=== PATIENT | male | born 1940 | race Caucasian/White ===

== ENCOUNTER 2016-05-31 23:42 | Observation (INO) | payer OTHER ==
[~2016-05-31] VITALS: Ht 177.8 cm; Wt 101.5 kg
[~2016-05-31 23:42] MED LIST: ASPEC81 PO; CICL160A INH; CYAN100T6 PO; LEVO25TA PO; MTR/600 PO; PRAV40TA PO; RIVA1TAB4 PO
[2016-06-01] VITALS (11 sets, daily range): BP systolic 119–150; BP diastolic 70–95; PULSE 61–77; TEMP 36.5–37.3; O2SAT 94–99; Ht 177.8 cm; Wt 101.5 kg
[2016-06-01] MEDS ORDERED: HYG/25 PO (00:10)
[2016-06-01] MEDS ORDERED: ASPI1TAB48 PO (00:12)
[2016-06-01] MEDS ORDERED: LISI20TA3 PO (00:13)
[2016-06-01] MEDS ORDERED: RIVA1TAB4 PO (00:14)
[2016-06-01 00:27] LABS: BASO % 0.3 %; BASO ABS # 0.03 K/uL (0-0.2); COMPLETE YES; EOS % 1.6 %; HEMATOCRIT 41.2 % (42-52); IG% 0.5 %; LYMPH ABS # 2.42 K/uL (1.2-3.4); MEAN CELL VOLUME 85.1 fL (80-100); MEAN CORPUSCULAR HEMOGLOBIN 30.4 pg (25-34); MEAN CORPUSCULAR HGB CONC 35.7 g/dl (32-36); MEAN PLATELET VOLUME 10.7 fL (7.4-10.4); MONO % 10.1 %; NEUT % 63.5 %; PLATELET COUNT 147 K/uL (130-400); RED BLOOD COUNT 4.84 M/uL (4.7-6.1); WHITE BLOOD COUNT 10.07 K/uL (4.8-10.8)
[2016-06-01 00:29] LABS: PARTIAL THROMBOPLASTIN RATIO 0.9; PROTHROMBIN TIME (PATIENT) 11.1 SECONDS (9.0-12.0)
[2016-06-01 00:35] LABS: ALT/SGPT 22 U/L (12-78); AST/SGOT 17 U/L (15-37); BLOOD UREA NITROGEN 29 mg/dl (7-18); BUN/CREATININE RATIO 22.4 (10-20); CALCIUM 9.6 mg/dl (8.5-10.1); CARBON DIOXIDE 25 mmol/L (21-32); CHLORIDE 107 mmol/L (98-107); GLUCOSE 101 mg/dl (70-99); MAGNESIUM 2.2 mg/dl (1.8-2.4); SODIUM 143 mmol/L (136-145)
[2016-06-01 00:38] LABS: ALKALINE PHOSPHATASE 103 U/L (45-117)
[2016-06-01 01:15] LABS: BENZODIAZEPINE, URINE NEG (NEG); COCAINE,URINE NEG (NEG); PHENCYCLIDINE, URINE NEG (NEG)
--- NOTE | 2016-06-01 01:35 | EMERGENCY ROOM VISIT NOTE ---
History Report prepared by Kay: Alina Garzon Under the Supervision of: Dr. Shade Ponce M.D. First contact with patient: 23:55 Chief Complaint: SYNCOPE Stated Complaint: UNRESPONSIVE EPISODE Nursing Triage Summary: Patient presents ALS from [facility] for evaluation of ? syncopal episodes. EMS was called for an approximate 30 minute period where patient was in a fixed gaze. This occured again for EMS in route; lasting approximately 3-4 minutes. + blink reflex noted for medic during this time. Patient a/o upon arrival to ED. Denies any complaints. History of Present Illness The patient is a 75 year old male who presents to the Emergency Room with complaints of a sudden episode of unresponsiveness that occurred prior to arrival. Per nursing staff, the patient has had several episodes where he stares off into space and does not respond to anything. They deny any report of seizure like activity. Per the shelter guards, the patient was confused after the event, and had no recollection of what had happened. He had a similar episode with EMS. The patient does not remember any these episodes. The patient denies any recent illness, headache, fever, chest pain, shortness of breath, palpitations, or other complaints. Source of History: patient, nursing staff, other (shelter guards) Onset: prior to arrival Position: other (global) Quality: other (unresponsiveness episode) Timing: other (sudden) Associated Symptoms: No SOB, No chest pain, No fevers Review of Systems See HPI for pertinent positives & negatives. A total of 10 systems reviewed and were otherwise negative. Past Medical & Surgical Medical Problems: (1) Atrial fibrillation (2) Embolic stroke of left basal ganglia (3) HTN (hypertension) (4) Hypothyroidism (5) Pneumonia (6) Seizure-like activity (7) Seizures (8) Stenosis of right vertebral artery Surgical Problems: (1) Aortic valve replaced Family History Patient reports no known family medical history. Social History Smoking Status: Never Smoker Drug Use: none Housing Status: other Occupation Status: unemployed Current/Historical Medications Scheduled Aspirin (Aspirin Low Dose), 81 MG PO DAILY Chlorthalidone (Hygroton), 25 MG PO BID Ciclesonide (Alvesco), 1 PUFF INH BID Cyanocobalamin (Vitamin B12 100 Mcg), 100 MCG PO DAILY Levothyroxine Sodium (Synthroid), 50 MCG PO DAILY Lisinopril (Prinivil), 20 MG PO BID Pravastatin Sodium (Pravachol), 60 MG PO HS Rivaroxaban (Xarelto), 20 MG PO DAILY Scheduled PRN Ibuprofen (Ibuprofen), 600 MG PO TID PRN for Pain Allergies Coded Allergies: No Known Allergies (Unverified , 06/01/16) Physical Exam Vital Signs Date Time Temp Pulse Resp B/P Pulse Ox O2 Delivery O2 Flow Rate FiO2 06/01/16 01:15 76 20 122/83 98 Room Air 06/01/16 00:08 91 22 165/98 98 Room Air 06/01/16 00:02 97 Room Air 05/31/16 23:58 86 05/31/16 23:48 36.7 88 20 186/113 98 Room Air Physical Exam Constitutional: Vital signs reviewed. Eyes: Pupils are equal round reactive to light. Conjunctiva are noninjected. ENT: Pharynx is clear without erythema or exudate. Mucous membranes are moist. Neck supple without meningeal signs. Respiratory: Clear to auscultation bilaterally. Breath sounds are equal bilaterally. Cardiovascular: Regular rate and rhythm. No rubs or gallops. GI: Soft, nondistended and nontender. Bowel sounds are present. Musculoskeletal: No peripheral edema. No lower extremity tenderness. Integumentary: No cyanosis. Neurological: The patient is awake and alert. Cranial nerves II-XII are intact. Motor is 5 out of 5 all extremities. Sensation is intact to light touch all extremities. Normal speech. No pronator drift. Psychiatric: Normal affect. Medical Decision & Procedures ER Provider Diagnostic Interpretation: 1 view chest x-ray interpreted by me: increase interstitial markings in the left lung obscuring heart border, similar to prior chest x-ray from June [address] results as stated below per my review and radiologist interpretation. CT Head: Comparison: CT dated 06/08/15 No acute intracranial hemorrhage or other acute intracranial abnormality. Stable arachnoid cyst in the left middle cranial fossa. Stable atrophy and chronic small vessel ischemic disease. Stable chronic left basal ganglia lacunar infarct. Radiologist: Enedina King MD Study ready at 0036 and initial results transmitted at 0109 Laboratory Results 06/01/16 00:07 Red Blood Count 4.84, Mean Corpuscular Volume 85.1, Mean Corpuscular Hemoglobin 30.4, Mean Corpuscular Hemoglobin Concent 35.7, Mean Platelet Volume 10.7, Neutrophils (%) (Auto) 63.5, Lymphocytes (%) (Auto) 24.0, Monocytes (%) (Auto) 10.1, Eosinophils (%) (Auto) 1.6, Basophils (%) (Auto) 0.3, Neutrophils # (Auto ) 6.39, Lymphocytes # (Auto) 2.42, Monocytes # (Auto) 1.02, Eosinophils # (Auto ) 0.16, Basophils # (Auto) 0.03 06/01/16 00:07 Test 06/01/16 00:07 06/01/16 00:10 06/01/16 00:40 White Blood Count 10.07 K/uL (4.8-10.8) Red Blood Count 4.84 M/uL (4.7-6.1) Hemoglobin 14.7 g/dL (14.0-18.0) Hematocrit 41.2 % (42-52) Mean Corpuscular Volume 85.1 fL (80-100) Mean Corpuscular Hemoglobin 30.4 pg (25-34) Mean Corpuscular Hemoglobin Concent 35.7 g/dl (32-36) Platelet Count 147 K/uL (130-400) Mean Platelet Volume 10.7 fL (7.4-10.4) Neutrophils (%) (Auto) 63.5 % Lymphocytes (%) (Auto) 24.0 % Monocytes (%) (Auto) 10.1 % Eosinophils (%) (Auto) 1.6 % Basophils (%) (Auto) 0.3 % Neutrophils # (Auto) 6.39 K/uL (1.4-6.5) Lymphocytes # (Auto) 2.42 K/uL (1.2-3.4) Monocytes # (Auto) 1.02 K/uL (0.11-0.59) Eosinophils # (Auto) 0.16 K/uL (0-0.5) Basophils # (Auto) 0.03 K/uL (0-0.2) RDW Standard Deviation 40.5 fL (36.4-46.3) RDW Coefficient of Variation 13.1 % (11.5-14.5) Immature Granulocyte % (Auto) 0.5 % Immature Granulocyte # (Auto) 0.05 K/uL (0.00-0.02) Prothrombin Time 11.1 SECONDS (9.0-12.0) Prothromb Time International Ratio 1.0 (0.9-1.1) Activated Partial Thromboplast Time 23.9 SECONDS (21.0-31.0) Partial Thromboplastin Ratio 0.9 Anion Gap 11.0 mmol/L (3-11) Estimated GFR () 62.3 Estimated GFR (Non- 53.8 BUN/Creatinine Ratio 22.4 (10-20) Calcium Level 9.6 mg/dl (8.5-10.1) Magnesium Level 2.2 mg/dl (1.8-2.4) Total Bilirubin 0.3 mg/dl (0.2-1) Direct Bilirubin < 0.1 mg/dl (0-0.2) Aspartate Amino Transf (AST/SGOT) 17 U/L (15-37) Alanine Aminotransferase (ALT/SGPT) 22 U/L (12-78) Alkaline Phosphatase 103 U/L (45-117) Total Protein 7.6 gm/dl (6.4-8.2) Albumin 4.0 gm/dl (3.4-5.0) Free Thyroxine 0.95 ng/dl (0.80-1.60) Bedside Troponin I 0.000 ng/ml (0-0.045) Urine Opiates Screen NEG (NEG) Urine Methadone, Qualitative NEG (NEG) Urine Barbiturates NEG (NEG) Urine Phencyclidine (PCP) Level NEG (NEG) Ur Amphetamine/Methamphetamine NEG (NEG) MDMA (Ecstasy) Screen NEG (NEG) Urine Benzodiazepines Screen NEG (NEG) Urine Cocaine Metabolite NEG (NEG) Urine Marijuana (THC) NEG (NEG) Laboratory results as reviewed by me. ECG Indication: altered mental status Rate (beats per minute): 71 Rhythm: atrial fibrillation Findings: nonspecific-ST abn, no ectopy ED Course 2358: The patient was evaluated in room A12B. A complete history and physical exam was performed. 0113: I reevaluated the patient and he has no complaints. I discussed the exam findings with him and I discussed the treatment plan. He verbalized complete understanding and agreement. He is ready to go home. []: I discussed the patient's case with MATT Farris. He is going to evaluate the patient for further treatment. Medical Decision This is a 75-year-old male who presents with unresponsive episodes. Differential diagnosis includes seizure, dysrhythmia, intracranial hemorrhage, intracranial mass, metabolic derangement. I did perform a limited focused review of portions of the patient's old chart on the electronic medical record. The patient was here in may of last year because he had two syncopal episodes where he was unresponsive for [address] scan showed subacute left basal ganglia CVA. EEG showed no epileptic wave forms. He was noted to have bradycardia. I did evaluate the patient as noted above. The patient states that he feels unwell but has no specific complaints. He had 2 unresponsive episodes. IV access was established. The patient was placed on a continuous cardiac cath lab technologist. I did order and personally review the patient's 12-lead EKG and chest x-ray as described above. I did order and review the patient's blood work as noted in the electronic medical record. Troponin is 0. Electrolytes are unremarkable. Urine drug screen is negative. I did order a CT of the head. I did review the images myself as well as the radiology report as described above. There is no evidence of stroke or acute process. I did discuss the test results with the patient. He is currently not complaining of any symptoms. I did recommend hospitalization for further evaluation of his symptoms. I did discuss the case with the hospitalist and bottle caser. Consults Time Called: 0112 Consulting Physician: MATT Farris Returned Call: 01:34 I discussed the patient's case with MATT Farris. He is going to evaluate the patient for further treatment. Impression Primary Impression: Unresponsive episode Scribe Attestation The scribe's documentation has been prepared under my direct and personally reviewed by me in its entirety. I confirm that the note above accurately reflects all work, treatment, procedures, and medical decision making performed by me. Departure Information Dispostion Being Evaluated By Hospitalist Referrals Bharat WEISS (PCP)
[2016-06-01] MEDS ORDERED: PHARMACIST DISCHARGE MED REC CONSULT PRN (01:45)
[2016-06-01] MEDS ORDERED: SODIUM CHLORIDE 0.9% 1000ML 1,000 ML IV SCH (01:45)
[2016-06-01] MEDS ORDERED: ALUMINUM/MAGNESIUM/SIMETH (MAALOX MAX) 30 ML UDC PO PRN (01:45)
[2016-06-01] MEDS ORDERED: MAGNESIUM HYDROXIDE SUSP 30 ML UDC PO PRN (01:45)
[2016-06-01] MEDS ORDERED: ONDANSETRON INJ 2 MG/ML 2 ML VIAL IV PRN (01:45)
[2016-06-01] MEDS ORDERED: ACETAMINOPHEN 325 MG TAB PO PRN (01:45)
[2016-06-01] MEDS ORDERED: POLYETHYLENE (MIRALAX) 17 GM PACK PO PRN ×2 (01:45→17:00)
--- NOTE | 2016-06-01 01:57 | History and Physical ---
History & Physical Date & Time of Service: Jun 01, 2016 at 01:45 Chief Complaint: Unresponsive Episode Primary Care Physician: Bharat WEISS History of Present Illness Source: patient 75 y/o M w/Hx CVA, AF, vertebrobasilar insufficiency, multiple syncopal episodes , bradycardia. Presents from a local correction facility due to unresponsive episodes lasting several minutes. Initial episodes - approximately 4 - occurred in nursing home. Additional episode was witnessed by EMS on route to the hospital. There is no reported accompanying LOC, seizure-like activity or defined post-ictal state. The pt denies recollection of theses episodes or preceding symptoms such as CP, palpitations, SOB, WARD or visual disturbances. He was admitted due to similar complaint 06/15. An MRI at the time revealed a L basilar lacunar infarct. It is unclear if this was related to his symptoms. An EEG was negative. The pt is anticoagulated with Xarelto and takes daily ASA as well. He is asymptomatic at the time of admission. Past Medical/Surgical History 1) L basilar lacunar CVA 2) Multiple syncopal episodes 3) HTN 4) Non-occlusive CAD - pt has had several catheterizations per previous records 5) Chronic AF 6) Bioprosthetic aortic valve 2013 7) PFO closure 2013 8) Recurrent syncopal episodes - long-term event monitor did not yield a diagnosis 9) Bradycardia into 30s reported during previous hospital visits 10) RENATO 11) HPL Family History Patient reports no known family medical history. Social History Incarcerated - does not drink or smoke Smoking Status: Never Smoker Drug Use: none Housing status: other Occupational Status: unemployed Allergies Coded Allergies: No Known Allergies (Unverified , 06/01/16) Home Medications Scheduled Aspirin (Aspirin Low Dose), 81 MG PO DAILY Chlorthalidone (Hygroton), 25 MG PO BID Ciclesonide (Alvesco), 1 PUFF INH BID Cyanocobalamin (Vitamin B12 100 Mcg), 100 MCG PO DAILY Levothyroxine Sodium (Synthroid), 50 MCG PO DAILY Lisinopril (Prinivil), 20 MG PO BID Pravastatin Sodium (Pravachol), 60 MG PO HS Rivaroxaban (Xarelto), 20 MG PO DAILY Scheduled PRN Ibuprofen (Ibuprofen), 600 MG PO TID PRN for Pain Review of Systems Constitutional: No chills, No fever, No sweats Eyes: No eye pain, No worsening of vision ENT: No hearing loss, No nasal symptoms, No unusual epistaxis Respiratory: No cough, No sputum, No wheezing Cardiovascular: No PND, No chest pain, No orthopnea Abdomen: No nausea, No pain, No vomiting Musculoskeletal: No joint pain, No muscle pain Genitourinary - Male: No dysuria, No hematuria, No urinary frequency Neurologic: + memory loss, + problem reported (Breif unresponsive episode x 2) , No paralysis Psychiatric: No depression symptoms Endocrine: No fatigue Hematologic / Lymphatic: No abnormal bleeding/bruising Integumentary: No rash Allergic / Immunologic: No environmental allergies Physical Exam Vital Signs Date Time Temp Pulse Resp B/P Pulse Ox O2 Delivery O2 Flow Rate FiO2 06/01/16 01:15 76 20 122/83 98 Room Air 06/01/16 00:08 91 22 165/98 98 Room Air 06/01/16 00:02 97 Room Air 05/31/16 23:58 86 05/31/16 23:48 36.7 88 20 186/113 98 Room Air General Appearance: WD/WN, no apparent distress Head: normocephalic, atraumatic Eyes: normal inspection, PERRL, EOMI ENT: normal ENT inspection, pharynx normal Neck: supple, no adenopathy, thyroid normal, no JVD Respiratory/Chest: chest non-tender, lungs clear, normal breath sounds Cardiovascular: + systolic murmur, + irregularly irregular Abdomen/GI: normal bowel sounds, non tender, soft Back: normal inspection, no CVA tenderness, no muscle spasm, normal range of motion Extremities/Musculoskelatal: normal inspection, no calf tenderness, normal capillary refill, no pedal edema, normal range of motion Neurologic/Psych: abrasive grinder II-XII nml as tested, no motor/sensory deficits, alert, normal mood/affect, normal reflexes, oriented x 3 Skin: normal color, warm/dry, no rash Diagnostics Laboratory Results Results Past 24 Hours Test 06/01/16 00:07 06/01/16 00:10 06/01/16 00:40 Range/Units White Blood Count 10.07 4.8-10.8 K/uL Red Blood Count 4.84 4.7-6.1 M/uL Hemoglobin 14.7 14.0-18.0 g/dL Hematocrit 41.2 42-52 % Mean Corpuscular Volume 85.1 80-100 fL Mean Corpuscular Hemoglobin 30.4 25-34 pg Mean Corpuscular Hemoglobin Concent 35.7 32-36 g/dl Platelet Count 147 130-400 K/uL Mean Platelet Volume 10.7 7.4-10.4 fL Neutrophils (%) (Auto) 63.5 % Lymphocytes (%) (Auto) 24.0 % Monocytes (%) (Auto) 10.1 % Eosinophils (%) (Auto) 1.6 % Basophils (%) (Auto) 0.3 % Neutrophils # (Auto) 6.39 1.4-6.5 K/uL Lymphocytes # (Auto) 2.42 1.2-3.4 K/uL Monocytes # (Auto) 1.02 0.11-0.59 K/uL Eosinophils # (Auto) 0.16 0-0.5 K/uL Basophils # (Auto) 0.03 0-0.2 K/uL RDW Standard Deviation 40.5 36.4-46.3 fL RDW Coefficient of Variation 13.1 11.5-14.5 % Immature Granulocyte % (Auto) 0.5 % Immature Granulocyte # (Auto) 0.05 0.00-0.02 K/uL Prothrombin Time 11.1 9.0-12.0 SECONDS Prothromb Time International Ratio 1.0 0.9-1.1 Activated Partial Thromboplast Time 23.9 21.0-31.0 SECONDS Partial Thromboplastin Ratio 0.9 Sodium Level 143 136-145 mmol/L Potassium Level 4.0 3.5-5.1 mmol/L Chloride Level 107 98-107 mmol/L Carbon Dioxide Level 25 21-32 mmol/L Anion Gap 11.0 3-11 mmol/L Blood Urea Nitrogen 29 7-18 mg/dl Creatinine 1.30 0.60-1.40 mg/dl Estimated GFR () 62.3 Estimated GFR (Non- 53.8 BUN/Creatinine Ratio 22.4 10-20 Random Glucose 101 70-99 mg/dl Calcium Level 9.6 8.5-10.1 mg/dl Magnesium Level 2.2 1.8-2.4 mg/dl Total Bilirubin 0.3 0.2-1 mg/dl Direct Bilirubin < 0.1 0-0.2 mg/dl Aspartate Amino Transf (AST/SGOT) 17 15-37 U/L Alanine Aminotransferase (ALT/SGPT) 22 12-78 U/L Alkaline Phosphatase 103 45-117 U/L Total Protein 7.6 6.4-8.2 gm/dl Albumin 4.0 3.4-5.0 gm/dl Free Thyroxine 0.95 0.80-1.60 ng/dl Bedside Troponin I 0.000 0-0.045 ng/ml Urine Opiates Screen NEG NEG Urine Methadone, Qualitative NEG NEG Urine Barbiturates NEG NEG Urine Phencyclidine (PCP) Level NEG NEG Ur Amphetamine/Methamphetamine NEG NEG MDMA (Ecstasy) Screen NEG NEG Urine Benzodiazepines Screen NEG NEG Urine Cocaine Metabolite NEG NEG Urine Marijuana (THC) NEG NEG Diagnostic Radiology CT head - no acute findings EKG AF - IVCD - no acute change Impression Assessment and Plan 75 y/o M w/Hx CVA, AF, vertebrobasilar insufficiency, multiple syncopal episodes , bradycardia. Presents from a local correction facility due to unresponsive episodes lasting several minutes. Initial episodes - approximately 4 - occurred in nursing home. Additional episode was witnessed by EMS on route to the hospital. There is no reported accompanying LOC, seizure-like activity or defined post-ictal state. The pt denies recollection of theses episodes or preceding symptoms such as CP, palpitations, SOB, WARD or visual disturbances. He was admitted due to similar complaint 06/15. An MRI at the time revealed a L basilar lacunar infarct. It is unclear if this was related to his symptoms. An EEG was negative. The pt is anticoagulated with Xarelto and takes daily ASA as well. He is asymptomatic at the time of admission. 1) Unresponsive episodes - R/O TIA vs Seizures - pt is anticoagulated with Xarelto and takes ASA daily - we have increased his Statin dose. He is scheduled for an additional MRI AM and a neurology consult is requested. If these episodes continue to recur and are deemed unrelated to vascular insult, it may be prudent to transfer this pt to an epilepsy center for continuous EEG/ video monitoring. 2) AF - rate controlled - cont B mojgan, Xarelto - consider echo if there are new insults seen on MRI. 3) HTN - BP meds held pending MRI and neuro eval 4) Previous bradycardic episodes - none currently detected - pt is being monitored for bradycardia and any correlation with symptoms Full code - anticoagulated with Xarelto Total time for this admit including review of extensive records, labs, imaging, EKG - discussion with ER attending and pt - 42 min Level of Care Telemetry Resuscitation Status FULL RESUSCITATION VTE Prophylaxis VTE Risk Assessment Done? Y/N: Yes Risk Level: Moderate Given or contraindicated: Other Anticoagulation
[2016-06-01] MEDS ORDERED: IV FLUIDS COMPLETED PRN (02:00)
[2016-06-01] MEDS: LEVOTHYROXINE 50 MCG TAB PO SCH (06:04)
[2016-06-01 06:06] LABS: ESTIMATED AVERAGE GLUCOSE 111 mg/dl; HA1C FLAG Normal (Normal)
--- NOTE | 2016-06-01 06:30 | DIAGNOSTIC IMAGING REPORT ---
CT HEAD WITHOUT CONTRAST (CT) CLINICAL HISTORY: Change in mental status. Unresponsive patient. COMPARISON STUDY: 06/08/2015 TECHNIQUE: Axial CT of the brain is performed from the vertex to the skull base. IV contrast was not administered for this examination. CT DOSE: 614.27 mGy.cm FINDINGS: There is a left middle cranial fossa arachnoid cyst. No other masses are visualized. There is no CT evidence of acute cortical infarction. There is no midline shift. There is no acute hemorrhage. There are patchy white matter hypodensities likely on a small vessel basis. There is an old lacunar infarct within the left basal ganglia. There is no evidence of pathologic ventricular dilatation. There is no evidence of acute sinusitis IMPRESSION: No acute intracranial findings Electronically signed by: Aris Manrique M.D. 06/01/2016 6:29 AM Dictated Date/Time: 06/01/2016 6:28 AM
--- NOTE | 2016-06-01 06:45 | DIAGNOSTIC IMAGING REPORT ---
CHEST ONE VIEW PORTABLE CLINICAL HISTORY: Atypical chest pain. Unresponsive episode. COMPARISON STUDY: 06/08/2015 FINDINGS: There are postsurgical changes of a midline sternotomy. The heart is mildly enlarged. Left lung interstitial opacities remain similar. There are no significant pleural effusions. There is mild central vascular prominence.[ IMPRESSION: Nonspecific left lung interstitial opacities, similar to the prior June 2015 study Electronically signed by: Aris Manrique M.D. 06/01/2016 6:43 AM Dictated Date/Time: 06/01/2016 6:43 AM
[2016-06-01] MEDS: ASPIRIN 81 MG ECTAB PO SCH (08:14)
[2016-06-01] MEDS: CYANOCOBALAMIN 100 MCG TAB (VIT B-12) PO SCH (08:14)
[2016-06-01] MEDS: ATORVASTATIN 40 MG TAB PO SCH (08:15)
[2016-06-01] MEDS ORDERED: OPTIRAY 320 IV PRN (10:00)
--- NOTE | 2016-06-01 10:10 | Neurology Consultation ---
Neurology Consultation Date of Consultation: Jun 01, 2016. Attending Physician: Husam Merida MD Primary Care Physician: Bharat WEISS Reason for Consultation: TIA History of Present Illness Source: patient, hospital records The patient is a 75 year old prisoner with a past medical history of atrial fibrillation, stroke, and aortic valve replacement. He is prescribed Xarelto and daily aspirin. His history is notable for episodic unresponsive episodes with associated confusion and amnesia but without obvious observed seizure activity. These episodes began about 7 years ago. He has been admitted to [facility] previously, and seen by Dr. Chery in June [address] Chery's last consultation provides a very good summary of this patient's neurological history, previous evaluations and management including extended EEG and cardiac monitoring which were unremarkable. The patient has also been empirically treated for seizure disorder in the past with Dilantin. This medication provided no beneficial effect. Electroencephalogram completed at [facility] last May was unremarkable. A CT angiogram completed at that time revealed a right vertebral artery stenosis and a diminutive left vertebral and basilar artery. A recently completed CT of the head reveals atrophy and chronic small vessel ischemic disease as well as an old left basal ganglia stroke. I reviewed the images pertaining to these studies. A recently completed electrocardiogram is consistent with atrial fibrillation. The patient has been admitted to the hospital after a similar episode characterized by an unresponsive episode characterized by staring off into space with a duration of about 30 minutes but without observed seizure- like activity. A blink reflex was noted to be intact during this time. Past Medical/Surgical History Medical Problems: (1) Stroke Status: Acute (2) Subtherapeutic international normalized ratio (INR) Status: Acute (3) Syncope Status: Acute (4) Unresponsive episode Status: Acute Family History No known family history pertinent medical or neurological problems according to patient Sibling(s): pertinent history of Social History Drug Use: none Housing Status: other Occupation Status: unemployed Allergies Coded Allergies: No Known Allergies (Unverified , 06/01/16) Current Inpatient Medications Current Inpatient Medications Medications (Trade) Dose Ordered Sig/Edwina Route Start Time Stop Time Status Last Admin Dose Admin Miscellaneous Information (Pharmacist Discharge Med Rec Consult) 1 ea UD PRN N/A 06/01/16 01:45 07/01/16 01:44 Aspirin (Ecotrin Tab) 81 mg DAILY PO 06/01/16 09:00 07/01/16 08:59 06/01/16 08:14 81 MG Cyanocobalamin (Vitamin B-12 Tab) 100 mcg DAILY PO 06/01/16 09:00 07/01/16 08:59 06/01/16 08:14 100 MCG Levothyroxine Sodium (Synthroid Tab) 50 mcg DAILYBB PO 06/01/16 06:00 07/01/16 05:59 06/01/16 06:04 50 MCG Rivaroxaban (Xarelto Tab) 20 mg DAILY@1630 PO 06/01/16 16:30 07/01/16 16:29 Atorvastatin Calcium 80 mg 80 mg QAM PO 06/01/16 09:00 07/01/16 08:59 06/01/16 08:15 80 MG Sodium Chloride (Nss 1000ml) 1,000 ml @ 100 mls/hr Q10H IV 06/01/16 01:45 06/01/16 11:44 06/01/16 03:00 100 MLS/HR Acetaminophen (Tylenol Tab) 650 mg Q4H PRN PO 06/01/16 01:45 07/01/16 01:44 Al Hydrox/Mg Hydrox/Simethicone (Maalox Max Susp) 15 ml Q4H PRN PO 06/01/16 01:45 07/01/16 01:44 Magnesium Hydroxide (Milk Of Magnesia Susp) 30 ml Q12H PRN PO 06/01/16 01:45 07/01/16 01:44 Ondansetron HCl (Zofran Inj) 4 mg Q6H PRN IV 06/01/16 01:45 07/01/16 01:44 Polyethylene (Miralax Powder Packet) 17 gm DAILY PRN PO 06/01/16 01:45 07/01/16 01:44 Miscellaneous (Iv Fluids Completed) 1 ea PRN PRN N/A 06/01/16 02:00 06/01/17 01:59 Review of Systems The patient denies headache, fever, chills, chest pain, palpitations, shortness of breath, coughing, wheezing, abdominal pain, diarrhea, dysuria, incontinence, muscle pain, joint pain, easy bleeding, swollen glands, depression, anxiety, or problems with sleep A full 10 point review of systems was obtained from this patient and is as described in the history of present illness and otherwise listed above Physical Exam Vital Signs (Past 24 Hrs): Date Time Temp Pulse Resp B/P Pulse Ox O2 Delivery O2 Flow Rate FiO2 06/01/16 04:25 36.6 69 18 120/74 96 Room Air 06/01/16 04:00 Room Air 06/01/16 02:00 36.7 77 18 150/95 Room Air 06/01/16 01:15 76 20 122/83 98 Room Air 06/01/16 00:08 91 22 165/98 98 Room Air 06/01/16 00:02 97 Room Air 05/31/16 23:58 86 05/31/16 23:48 36.7 88 20 186/113 98 Room Air The patient is a well-developed, elderly male, lying in bed, in no acute distress. He is pleasant and cooperative, there are to nursing home guards present. He is alert and oriented to person place and time. Attention and concentration normal. Recent and remote memory normal. He exhibits a normal spontaneous speech pattern and is able to name objects and repeat phrases. Vocabulary normal. Gen. fund of knowledge normal. Visual mello full to confrontation. Visual acuity normal. Pupils equal round reactive to light and accommodation. Eye movements normal. There is no nystagmus. Facial sensation intact. There is normal facial symmetry and strength. No facial droop. Palate elevates to midline. Tongue protrudes to midline. Shoulder shrug strength normal. Diminished hearing to finger rub bilaterally. Sensation intact to vibration, light touch, temperature, and proprioception for the arms and legs. Deep tendon reflexes are 2+ for the upper and lower extremities bilaterally. Plantar responses downgoing bilaterally. There is no dysmetria with finger to nose or heel to may bilaterally. Ophthalmoscopic examination reveals normal-appearing optic nerves and posterior segments. No papilledema. No hemorrhages. Carotid pulses normal to auscultation bilaterally, no bruits. Muscular skeletal examination reveals normal strength and tone for the arms and legs bilaterally. There is no atrophy. No tremors or other abnormal movements observed. Gait could not be tested. Laboratory Results Past 24 Hours: 06/01/16 00:07 Red Blood Count 4.84, Mean Corpuscular Volume 85.1, Mean Corpuscular Hemoglobin 30.4, Mean Corpuscular Hemoglobin Concent 35.7, Mean Platelet Volume 10.7, Neutrophils (%) (Auto) 63.5, Lymphocytes (%) (Auto) 24.0, Monocytes (%) (Auto) 10.1, Eosinophils (%) (Auto) 1.6, Basophils (%) (Auto) 0.3, Neutrophils # (Auto ) 6.39, Lymphocytes # (Auto) 2.42, Monocytes # (Auto) 1.02, Eosinophils # (Auto ) 0.16, Basophils # (Auto) 0.03 06/01/16 00:07 Test 06/01/16 00:07 06/01/16 00:10 06/01/16 00:40 White Blood Count 10.07 K/uL (4.8-10.8) Red Blood Count 4.84 M/uL (4.7-6.1) Hemoglobin 14.7 g/dL (14.0-18.0) Hematocrit 41.2 % (42-52) Mean Corpuscular Volume 85.1 fL (80-100) Mean Corpuscular Hemoglobin 30.4 pg (25-34) Mean Corpuscular Hemoglobin Concent 35.7 g/dl (32-36) Platelet Count 147 K/uL (130-400) Mean Platelet Volume 10.7 fL (7.4-10.4) Neutrophils (%) (Auto) 63.5 % Lymphocytes (%) (Auto) 24.0 % Monocytes (%) (Auto) 10.1 % Eosinophils (%) (Auto) 1.6 % Basophils (%) (Auto) 0.3 % Neutrophils # (Auto) 6.39 K/uL (1.4-6.5) Lymphocytes # (Auto) 2.42 K/uL (1.2-3.4) Monocytes # (Auto) 1.02 K/uL (0.11-0.59) Eosinophils # (Auto) 0.16 K/uL (0-0.5) Basophils # (Auto) 0.03 K/uL (0-0.2) RDW Standard Deviation 40.5 fL (36.4-46.3) RDW Coefficient of Variation 13.1 % (11.5-14.5) Immature Granulocyte % (Auto) 0.5 % Immature Granulocyte # (Auto) 0.05 K/uL (0.00-0.02) Prothrombin Time 11.1 SECONDS (9.0-12.0) Prothromb Time International Ratio 1.0 (0.9-1.1) Activated Partial Thromboplast Time 23.9 SECONDS (21.0-31.0) Partial Thromboplastin Ratio 0.9 Anion Gap 11.0 mmol/L (3-11) Estimated GFR () 62.3 Estimated GFR (Non- 53.8 BUN/Creatinine Ratio 22.4 (10-20) Estimated Average Glucose 111 mg/dl Hemoglobin A1c 5.5 % (4.5-5.6) Calcium Level 9.6 mg/dl (8.5-10.1) Magnesium Level 2.2 mg/dl (1.8-2.4) Total Bilirubin 0.3 mg/dl (0.2-1) Direct Bilirubin < 0.1 mg/dl (0-0.2) Aspartate Amino Transf (AST/SGOT) 17 U/L (15-37) Alanine Aminotransferase (ALT/SGPT) 22 U/L (12-78) Alkaline Phosphatase 103 U/L (45-117) Total Protein 7.6 gm/dl (6.4-8.2) Albumin 4.0 gm/dl (3.4-5.0) Free Thyroxine 0.95 ng/dl (0.80-1.60) Bedside Troponin I 0.000 ng/ml (0-0.045) Urine Opiates Screen NEG (NEG) Urine Methadone, Qualitative NEG (NEG) Urine Barbiturates NEG (NEG) Urine Phencyclidine (PCP) Level NEG (NEG) Ur Amphetamine/Methamphetamine NEG (NEG) MDMA (Ecstasy) Screen NEG (NEG) Urine Benzodiazepines Screen NEG (NEG) Urine Cocaine Metabolite NEG (NEG) Urine Marijuana (THC) NEG (NEG) Impression Episodic lapses in awareness characterized by staring spells and unresponsiveness without associated convulsive activity. Partial complex seizures possible although previous evaluations have been unremarkable. Empiric treatment with an anticonvulsant in the past was reportedly not helpful. Psychogenic lapses not excluded. 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 Previous angiography has revealed stenosis of the right vertebral artery and a diminutive left vertebral and basilar artery. Cardiac arrhythmia also possible. Plan Agree with brain MRI to evaluate for acute or subacute stroke. I have ordered an up-to-date CT angiography of the head and neck as well as an up-to-date electroencephalogram. Further recommendations will be made pending completion of these tests. There is no standard treatment for vertebrobasilar insufficiency although antiplatelet medication is generally recommended. Therefore, this patient should continue with daily low-dose aspirin. He is also prescribed Xarelto which in theory could provide some benefit individuals with VBI and can be used in conjunction with daily low-dose aspirin. It is unclear if a another empiric trial of an anticonvulsant would be beneficial. Perhaps the repeat EEG will assist in making this decision.
--- NOTE | 2016-06-01 10:46 | EEG Procedure Note ---
EEG Procedure Note Date of Service Jun 01, 2016. Start / End Times Start Time: 9:54 AM End Time: 10:14 AM Referring Physician Abhishek Souza History This is a 75-year-old male who presents with loss of consciousness and labs in awareness. EEG for further evaluation of possible seizure etiology. Home Medication List Scheduled Aspirin (Aspirin Low Dose), 81 MG PO DAILY Chlorthalidone (Hygroton), 25 MG PO BID Ciclesonide (Alvesco), 1 PUFF INH BID Cyanocobalamin (Vitamin B12 100 Mcg), 100 MCG PO DAILY Levothyroxine Sodium (Synthroid), 50 MCG PO DAILY Lisinopril (Prinivil), 20 MG PO BID Pravastatin Sodium (Pravachol), 60 MG PO HS Rivaroxaban (Xarelto), 20 MG PO DAILY Scheduled PRN Ibuprofen (Ibuprofen), 600 MG PO TID PRN for Pain Inpatient Medication List Current Inpatient Medications Medications (Trade) Dose Ordered Sig/Edwina Route Start Time Stop Time Status Last Admin Dose Admin Miscellaneous Information (Pharmacist Discharge Med Rec Consult) 1 ea UD PRN N/A 06/01/16 01:45 07/01/16 01:44 Aspirin (Ecotrin Tab) 81 mg DAILY PO 06/01/16 09:00 07/01/16 08:59 06/01/16 08:14 81 MG Cyanocobalamin (Vitamin B-12 Tab) 100 mcg DAILY PO 06/01/16 09:00 07/01/16 08:59 06/01/16 08:14 100 MCG Levothyroxine Sodium (Synthroid Tab) 50 mcg DAILYBB PO 06/01/16 06:00 07/01/16 05:59 06/01/16 06:04 50 MCG Rivaroxaban (Xarelto Tab) 20 mg DAILY@1630 PO 06/01/16 16:30 07/01/16 16:29 Atorvastatin Calcium 80 mg 80 mg QAM PO 06/01/16 09:00 07/01/16 08:59 06/01/16 08:15 80 MG Sodium Chloride (Nss 1000ml) 1,000 ml @ 100 mls/hr Q10H IV 06/01/16 01:45 06/01/16 11:44 06/01/16 03:00 100 MLS/HR Acetaminophen (Tylenol Tab) 650 mg Q4H PRN PO 06/01/16 01:45 07/01/16 01:44 Al Hydrox/Mg Hydrox/Simethicone (Maalox Max Susp) 15 ml Q4H PRN PO 06/01/16 01:45 07/01/16 01:44 Magnesium Hydroxide (Milk Of Magnesia Susp) 30 ml Q12H PRN PO 06/01/16 01:45 07/01/16 01:44 Ondansetron HCl (Zofran Inj) 4 mg Q6H PRN IV 06/01/16 01:45 07/01/16 01:44 Polyethylene (Miralax Powder Packet) 17 gm DAILY PRN PO 06/01/16 01:45 07/01/16 01:44 Miscellaneous (Iv Fluids Completed) 1 ea PRN PRN N/A 06/01/16 02:00 06/01/17 01:59 Ioversol (Optiray 320) 125 ml UD PRN IV 06/01/16 10:00 06/05/16 09:59 Description This is a 21 electrode EEG with a single channel dedicated to limited EKG. The electrodes were placed in accordance with the International 10-20 system. IV drip artifact noted. There was moderate to severe electrode and movement artifact for most of the first half of this EEG limiting the read and interpretation. At the start of this recording the patient was in reported altered mental status. Background was poorly organized with a poorly formed anterior to posterior gradient. The background was composed of symmetric moderate amplitude theta/alpha frequencies with intermixed beta frequencies. There was a symmetric moderate amplitude posterior dominant rhythm of 7-8 Hz. Hyperventilation was not done. Photic stimulation at various frequencies did not produce any abnormalities. Sleep was indicated by vertex waves and symmetric sleep spindles. Interpretation This is an abnormal routine EEG secondary to mild background slowing. There was no electrographic seizures or epileptiform discharges. Clinical Correlation This EEG indicates a mild encephalopathy of nonspecific etiology. The read and interpretation of this EEG for most of the first half was moderate to severely limited due to frequent movement artifact, electrode artifact and likely artifact in T5.
--- NOTE | 2016-06-01 11:24 | Family Medicine Progress Note ---
Progress Note Date of Service Jun 01, 2016. Subjective Pt evaluation today including: conversation w/ patient, physical exam, chart review, lab review Pain: Denies Patient was seen at the bedside. Lying down comfortably on bed. Denies any problems today. He states that he doesn't recall the event that happened yesterday night. Denies any dizziness, headache, SOB, chest pain, nausea, vomiting, or any other additional symptoms. Constitutional: No fever, No weakness Respiratory: No cough, No dyspnea on exertion, No shortness of breath, No sputum, No wheezing Cardiovascular: No chest pain, No edema Abdomen: No constipation, No diarrhea, No nausea, No pain, No vomiting Musculoskeletal: No muscle pain Neurologic: + memory loss (can't recall the event from yesterday), No numbness/tingling, No paralysis, No vertigo, No weakness Skin: No rash Medications Current Inpatient Medications Medications (Trade) Dose Ordered Sig/Edwina Route Start Time Stop Time Status Last Admin Dose Admin Miscellaneous Information (Pharmacist Discharge Med Rec Consult) 1 ea UD PRN N/A 06/01/16 01:45 07/01/16 01:44 Aspirin (Ecotrin Tab) 81 mg DAILY PO 06/01/16 09:00 07/01/16 08:59 06/01/16 08:14 81 MG Cyanocobalamin (Vitamin B-12 Tab) 100 mcg DAILY PO 06/01/16 09:00 07/01/16 08:59 06/01/16 08:14 100 MCG Levothyroxine Sodium (Synthroid Tab) 50 mcg DAILYBB PO 06/01/16 06:00 07/01/16 05:59 06/01/16 06:04 50 MCG Rivaroxaban (Xarelto Tab) 20 mg DAILY@1630 PO 06/01/16 16:30 07/01/16 16:29 Atorvastatin Calcium 80 mg 80 mg QAM PO 06/01/16 09:00 07/01/16 08:59 06/01/16 08:15 80 MG Sodium Chloride (Nss 1000ml) 1,000 ml @ 100 mls/hr Q10H IV 06/01/16 01:45 06/01/16 11:44 06/01/16 03:00 100 MLS/HR Acetaminophen (Tylenol Tab) 650 mg Q4H PRN PO 06/01/16 01:45 07/01/16 01:44 Al Hydrox/Mg Hydrox/Simethicone (Maalox Max Susp) 15 ml Q4H PRN PO 06/01/16 01:45 07/01/16 01:44 Magnesium Hydroxide (Milk Of Magnesia Susp) 30 ml Q12H PRN PO 06/01/16 01:45 07/01/16 01:44 Ondansetron HCl (Zofran Inj) 4 mg Q6H PRN IV 06/01/16 01:45 07/01/16 01:44 Polyethylene (Miralax Powder Packet) 17 gm DAILY PRN PO 06/01/16 01:45 07/01/16 01:44 Miscellaneous (Iv Fluids Completed) 1 ea PRN PRN N/A 06/01/16 02:00 06/01/17 01:59 Ioversol (Optiray 320) 125 ml UD PRN IV 06/01/16 10:00 06/05/16 09:59 Objective Vital Signs Date Time Temp Pulse Resp B/P Pulse Ox O2 Delivery O2 Flow Rate FiO2 06/01/16 08:01 36.9 61 18 134/75 94 Room Air 06/01/16 08:00 Room Air 06/01/16 04:25 36.6 69 18 120/74 96 Room Air 06/01/16 04:00 Room Air 06/01/16 02:00 36.7 77 18 150/95 Room Air 06/01/16 01:15 76 20 122/83 98 Room Air 06/01/16 00:08 91 22 165/98 98 Room Air 06/01/16 00:02 97 Room Air 05/31/16 23:58 86 05/31/16 23:48 36.7 88 20 186/113 98 Room Air Physical Exam General Appearance: WD/WN, no apparent distress Neck: supple, trachea midline Respiratory/Chest: chest non-tender, lungs clear, normal breath sounds, no respiratory distress, no accessory muscle use Cardiovascular: no edema, no JVD, + systolic murmur Abdomen: normal bowel sounds, non tender, soft Extremities: non-tender, no pedal edema, no calf tenderness Neurologic/Psychiatric: alert, normal mood/affect Skin: normal color, warm/dry Laboratory Results Results Past 24 Hours Test 06/01/16 00:07 06/01/16 00:10 06/01/16 00:40 Range/Units White Blood Count 10.07 4.8-10.8 K/uL Red Blood Count 4.84 4.7-6.1 M/uL Hemoglobin 14.7 14.0-18.0 g/dL Hematocrit 41.2 42-52 % Mean Corpuscular Volume 85.1 80-100 fL Mean Corpuscular Hemoglobin 30.4 25-34 pg Mean Corpuscular Hemoglobin Concent 35.7 32-36 g/dl Platelet Count 147 130-400 K/uL Mean Platelet Volume 10.7 7.4-10.4 fL Neutrophils (%) (Auto) 63.5 % Lymphocytes (%) (Auto) 24.0 % Monocytes (%) (Auto) 10.1 % Eosinophils (%) (Auto) 1.6 % Basophils (%) (Auto) 0.3 % Neutrophils # (Auto) 6.39 1.4-6.5 K/uL Lymphocytes # (Auto) 2.42 1.2-3.4 K/uL Monocytes # (Auto) 1.02 0.11-0.59 K/uL Eosinophils # (Auto) 0.16 0-0.5 K/uL Basophils # (Auto) 0.03 0-0.2 K/uL RDW Standard Deviation 40.5 36.4-46.3 fL RDW Coefficient of Variation 13.1 11.5-14.5 % Immature Granulocyte % (Auto) 0.5 % Immature Granulocyte # (Auto) 0.05 0.00-0.02 K/uL Prothrombin Time 11.1 9.0-12.0 SECONDS Prothromb Time International Ratio 1.0 0.9-1.1 Activated Partial Thromboplast Time 23.9 21.0-31.0 SECONDS Partial Thromboplastin Ratio 0.9 Sodium Level 143 136-145 mmol/L Potassium Level 4.0 3.5-5.1 mmol/L Chloride Level 107 98-107 mmol/L Carbon Dioxide Level 25 21-32 mmol/L Anion Gap 11.0 3-11 mmol/L Blood Urea Nitrogen 29 7-18 mg/dl Creatinine 1.30 0.60-1.40 mg/dl Estimated GFR () 62.3 Estimated GFR (Non- 53.8 BUN/Creatinine Ratio 22.4 10-20 Random Glucose 101 70-99 mg/dl Estimated Average Glucose 111 mg/dl Hemoglobin A1c 5.5 4.5-5.6 % Calcium Level 9.6 8.5-10.1 mg/dl Magnesium Level 2.2 1.8-2.4 mg/dl Total Bilirubin 0.3 0.2-1 mg/dl Direct Bilirubin < 0.1 0-0.2 mg/dl Aspartate Amino Transf (AST/SGOT) 17 15-37 U/L Alanine Aminotransferase (ALT/SGPT) 22 12-78 U/L Alkaline Phosphatase 103 45-117 U/L Total Protein 7.6 6.4-8.2 gm/dl Albumin 4.0 3.4-5.0 gm/dl Free Thyroxine 0.95 0.80-1.60 ng/dl Bedside Troponin I 0.000 0-0.045 ng/ml Urine Opiates Screen NEG NEG Urine Methadone, Qualitative NEG NEG Urine Barbiturates NEG NEG Urine Phencyclidine (PCP) Level NEG NEG Ur Amphetamine/Methamphetamine NEG NEG MDMA (Ecstasy) Screen NEG NEG Urine Benzodiazepines Screen NEG NEG Urine Cocaine Metabolite NEG NEG Urine Marijuana (THC) NEG NEG Microbiology Results 06/01/16 MRSA DNA Surveillance Screen - Final, Complete Specimen Negative for MRSA by DNA Probe Assessment and Plan This is a 75 y/o male from prisoner with PMHx of multiple syncopal episodes, AF , CVA, HTN, multiple hx of syncopal episodes, bradycardia, prosthetic aortic valve (2013), and RENATO presented to the hospital complaining of unresponsive episodes lasting for about 10-15minutes. Patient is currently asymptomatic. 1.Unresponsive episodes - Patient has hx of unresponsive episodes and was admitted on June 2015 and March 2015 for similar events. 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 No other masses are visualized. There is no CT evidence of acute cortical infarction. There is no midline shift. 2) There is no acute hemorrhage. 3) There are patchy white matter hypodensities likely on a small vessel basis. 4) There is an old lacunar infarct within the left basal ganglia. 5) There is no evidence of pathologic ventricular dilatation. - EEG is performed and result is pending - Order MRI of brain - pending - Order CT angiography of head and neck - pending - Neurology is consulted and recommended to continue with ASA and Xarelto given it provides benefit patient with vertebrobasilar insufficiency. No plan to start anticonvulsants at this moments. 2. Afib - Currently he is not in any rate controlled medications. His heart rate is stable (61) - Continue with Xarelto 20mg and ASA 81mg - Continue to monitor him 3. HTN - Holding HTN medication upon result of MRI and Neuro evaluation ( Chlorthalidene 25mg and Lisinopril 20mg) 4. Hx of CVA - Continue with Xarelto 20mg and ASA 81mg 5. Hx of Coronary Artery Disease - Had multiple cath in the past - C/w with increased dose of Lipitor 80mg 6. Previous bradycardic episodes - Currently not bradycardiac (61) - Continue to monitor 7. DVT prophylaxis - Xarelto 20mg 8. Code Status - Full code Resident Physician Supervision Note: I was present with Dr. Perry during the history and exam. I discussed the case with the resident and agree with the findings and plan as documented in the note. Any exceptions or clarifications are listed here: 75 y/o male admitted overnight with episode of altered mental status. Patient with h/o same about one year ago. Upon my exam today, patient without complaints. Agree with above exam notes with the addition that the patient is in rate- controlled a-fib. Appreciate neurology consult. Await results of pending studies, monitor on telemetry, and discharge in AM tomorrow should overnight remain uneventful. Documented By: Porfirio Shelby
--- NOTE | 2016-06-01 13:43 | DIAGNOSTIC IMAGING REPORT ---
Brain MRI WITHOUT CONTRAST HISTORY: Mental status change Stroke TECHNIQUE: Multiplanar multisequence MRI of the brain was performed without the use of contrast. COMPARISON STUDY: 06/09/2015 FINDINGS: No evidence for an acute ischemic insult. Moderate cerebellar as well as cerebral atrophy. Moderate chronic small vessel change. Left temporal fossa arachnoid cyst unchanged as compared to leads to prior exams. IMPRESSION: 1. No evidence for an acute intracranial ischemic process. 2. Atrophy. 3. Moderate chronic small vessel change. 4. Stable left temporal fossa arachnoid cyst Electronically signed by: Gerardo Rosales M.D. 06/01/2016 1:42 PM Dictated Date/Time: 06/01/2016 1:37 PM
--- NOTE | 2016-06-01 14:10 | DIAGNOSTIC IMAGING REPORT ---
CT ANGIOGRAPHY HEAD COMBO CT DOSE: CLINICAL HISTORY: Transient ischemic attack. Vertebrobasilar insufficiency. TECHNIQUE: Unenhanced images were obtained the brain. CT angiography of the head was then performed in a dynamic helical fashion during intravenous administration of 118 cc Optiray 320. MIP imaging was performed. COMPARISON STUDY: Noncontrast head CT dated June 01, 2016 FINDINGS: Noncontrast images reveal a left middle cranial fossa arachnoid cyst. There is a left basal ganglial lacunar infarct. There is no acute hemorrhage. CT angiographic images reveal a diminutive distal left vertebral artery. There is a high-grade stenosis of the distal right vertebral artery at the C1 level. The basilar artery is diminutive. There are atherosclerotic calcifications within the internal carotid arteries bilaterally. There is no evidence of hemodynamic significant stenosis. There are no lesion suspicious for aneurysm. There is no evidence of dural venous sinus thrombosis. IMPRESSION: 1. No evidence of aneurysm 2. No evidence of significant intracranial carotid stenosis 3. Diminutive distal left vertebral artery. High-grade stenosis of the distal right vertebral artery. Diminutive basilar artery. Electronically signed by: Aris Manrique M.D. 06/01/2016 2:08 PM Dictated Date/Time: 06/01/2016 2:03 PM
--- NOTE | 2016-06-01 14:19 | DIAGNOSTIC IMAGING REPORT ---
CT ANGIOGRAPHY NECK COMBO CT DOSE: 1853.92 mGy.cm CLINICAL HISTORY: Transient ischemic attack. Vertebrobasilar insufficiency. TECHNIQUE: Unenhanced and arterial phase imaging of the neck was performed. Injection of 118 cc of Optiray 320 IV was uneventful. Sagittal and coronal reconstructions were viewed as well as maximal intensity projections on an independent 3-D workstation. COMPARISON STUDY: CTA of the neck June 09, 2015. FINDINGS: There is mild plaque within the bilateral common carotid and internal carotid arteries without significant stenosis of these vessels. There is no evidence for dissection within the major vessels of the neck. The left vertebral artery is diminutive and arises directly from the aortic arch. There is moderate to severe stenosis of the intracranial portion of the left vertebral artery. There is extensive plaque of the intracranial portion of the right vertebral artery with suspected severe stenosis within its distal aspect. This is similar to exam of June 09, 2015. No cervical lymphadenopathy is present. Multifocal subpleural groundglass opacities with bronchiectasis suggest interstitial lung disease. Visualized portions of the airway are patent. No cervical spine fractures are noted. The CTA of the head will be reported separately. IMPRESSION: 1. No significant change since CTA of June 09, 2015. 2. Diminutive left vertebral artery, on a congenital basis, with moderate multifocal stenoses of the distal left vertebral artery. 3. Severe stenosis of the distal right vertebral artery. Diminutive basilar artery. 4. No significant stenosis of the bilateral common carotid and internal carotid arteries. 5. Subpleural ground glass opacities with bronchiectasis within visualized portions of the lungs which favors interstitial lung disease. Electronically signed by: Jovanny Velasco M.D. 06/01/2016 2:18 PM Dictated Date/Time: 06/01/2016 2:04 PM
[2016-06-01] MEDS ORDERED: RIVAROXABAN 10 MG TAB PO SCH (16:30)
[2016-06-02 03:56] VITALS: BP 133/73; PULSE 67; TEMP 36.5; O2SAT 98
[2016-06-02 04:00] VITALS: O2SAT 97
[2016-06-02] MEDS: LEVOTHYROXINE 50 MCG TAB PO SCH (05:55)
[2016-06-02 07:12] LABS: BASO % 0.4 %; BASO ABS # 0.04 K/uL (0-0.2); COMPLETE YES; EOS % 3.3 %; HEMATOCRIT 40.1 % (42-52); IG% 0.6 %; LYMPH ABS # 2.19 K/uL (1.2-3.4); MEAN CELL VOLUME 84.8 fL (80-100); MEAN CORPUSCULAR HGB CONC 35.4 g/dl (32-36); MEAN PLATELET VOLUME 10.6 fL (7.4-10.4); MONO % 9.2 %; NEUT % 63.5 %; PLATELET COUNT 122 K/uL (130-400); RED BLOOD COUNT 4.73 M/uL (4.7-6.1); WHITE BLOOD COUNT 9.53 K/uL (4.8-10.8)
[2016-06-02 07:46] LABS: BUN/CREATININE RATIO 21.5 (10-20); CALCIUM 9.4 mg/dl (8.5-10.1); CHOLESTEROL/HDL RATIO 4.7; CREATININE 0.99 mg/dl (0.60-1.40); POTASSIUM 3.9 mmol/L (3.5-5.1)
[2016-06-02 08:00] VITALS: BP 134/96; PULSE 75; TEMP 36.5; O2SAT 98
[2016-06-02] MEDS: CYANOCOBALAMIN 100 MCG TAB (VIT B-12) PO SCH (08:50)
[2016-06-02] MEDS: ATORVASTATIN 40 MG TAB PO SCH (08:50)
[2016-06-02] MEDS: ASPIRIN 81 MG ECTAB PO SCH (08:50)
--- NOTE | 2016-06-02 09:26 | Neurology Progress Notes ---
Neurology Progress Note Date of Service Jun 02, 2016. Subjective Patient does not remember syncopal/unresponsive event that brought him into the hospital. Previous hospital records including Dr. Souza's consultation, and my previous hospital consultations have been reviewed. The patient reports he is currently at his neurological baseline. In the past patient has had outside neurological workup for these spells with no definitive epilepsy found. EEGs in the past have been unremarkable with no signs of epilepsy. Reportedly patient has had a 48-hour inventory EEG in the past that was normal. The patient reports that this is been his first unresponsive/syncopal events in the last year. He denies any dizziness or presyncopal symptoms before hand. In a previous admission there has been concern for possible psychogenic or malingering behavior with unresponsiveness 10-20 minutes at a time with when seen when the nurse to deep nailbed pressure. In addition patient has a known severe vertebral stenosis which could cause vertebral basilar insufficiency and syncope. Patient is already on aspirin and anticoagulation. CTA of the head and neck were reviewed. Patient has distal right vertebral severe stenosis. Objective Date Time Temp Pulse Resp B/P Pulse Ox O2 Delivery O2 Flow Rate FiO2 06/02/16 08:00 36.5 75 18 134/96 98 Room Air 06/02/16 04:00 97 Room Air 06/02/16 03:56 36.5 67 18 133/73 98 Room Air 06/01/16 23:59 99 Room Air 06/01/16 23:30 36.5 77 20 124/72 99 Room Air 06/01/16 20:00 97 Room Air 06/01/16 19:39 36.9 69 18 128/81 97 Room Air 06/01/16 16:00 Room Air 06/01/16 15:33 36.5 72 20 131/85 97 Room Air 06/01/16 15:02 73 97 06/01/16 14:59 37.3 70 18 119/80 98 Room Air 06/01/16 12:00 Room Air 06/01/16 12:00 36.7 72 18 119/70 97 Room Air Last 24 Hours Test 06/02/16 06:40 White Blood Count 9.53 K/uL Red Blood Count 4.73 M/uL Hemoglobin 14.2 g/dL Hematocrit 40.1 % Mean Corpuscular Volume 84.8 fL Mean Corpuscular Hemoglobin 30.0 pg Mean Corpuscular Hemoglobin Concent 35.4 g/dl Platelet Count 122 K/uL Mean Platelet Volume 10.6 fL Neutrophils (%) (Auto) 63.5 % Lymphocytes (%) (Auto) 23.0 % Monocytes (%) (Auto) 9.2 % Eosinophils (%) (Auto) 3.3 % Basophils (%) (Auto) 0.4 % Neutrophils # (Auto) 6.05 K/uL Lymphocytes # (Auto) 2.19 K/uL Monocytes # (Auto) 0.88 K/uL Eosinophils # (Auto) 0.31 K/uL Basophils # (Auto) 0.04 K/uL RDW Standard Deviation 39.6 fL RDW Coefficient of Variation 13.0 % Immature Granulocyte % (Auto) 0.6 % Immature Granulocyte # (Auto) 0.06 K/uL Sodium Level 138 mmol/L Potassium Level 3.9 mmol/L Chloride Level 105 mmol/L Carbon Dioxide Level 23 mmol/L Anion Gap 10.0 mmol/L Blood Urea Nitrogen 21 mg/dl Creatinine 0.99 mg/dl Est Creatinine Clear Calc Drug Dose 78.1 ml/min Estimated GFR () 86.6 Estimated GFR (Non- 74.7 BUN/Creatinine Ratio 21.5 Random Glucose 91 mg/dl Calcium Level 9.4 mg/dl Triglycerides Level 146 mg/dl Cholesterol Level 188 mg/dl HDL Cholesterol 40 mg/dl LDL Cholesterol, Calculated 119 mg/dl VLDL Cholesterol, Calculated 29 mg/dl Cholesterol/HDL Ratio 4.7 Exam: Gen.: Patient is alert and oriented to person place and time HEENT: Normocephalic atraumatic no scleral icterus Cranial nerves: No facial asymmetry noted. Extraocular muscles intact without nystagmus. Strength: 5/5 both proximal and distally in all extremities Station within the chair was normal Current Inpatient Medications Medications (Trade) Dose Ordered Sig/Edwina Route Start Time Stop Time Status Last Admin Dose Admin Aspirin (Ecotrin Tab) 81 mg DAILY PO 06/01/16 09:00 07/01/16 08:59 06/02/16 08:50 81 MG Cyanocobalamin (Vitamin B-12 Tab) 100 mcg DAILY PO 06/01/16 09:00 07/01/16 08:59 06/02/16 08:50 100 MCG Levothyroxine Sodium (Synthroid Tab) 50 mcg DAILYBB PO 06/01/16 06:00 4/1/17 05:59 06/02/16 05:55 50 MCG Rivaroxaban (Xarelto Tab) 20 mg DAILY@1630 PO 06/01/16 16:30 07/01/16 16:29 06/01/16 17:40 20 MG Atorvastatin Calcium (Lipitor Tab) 80 mg QAM PO 06/01/16 09:00 07/01/16 08:59 06/02/16 08:50 80 MG Acetaminophen (Tylenol Tab) 650 mg Q4H PRN PO 06/01/16 01:45 07/01/16 01:44 Al Hydrox/Mg Hydrox/Simethicone (Maalox Max Susp) 15 ml Q4H PRN PO 06/01/16 01:45 07/01/16 01:44 Magnesium Hydroxide (Milk Of Magnesia Susp) 30 ml Q12H PRN PO 06/01/16 01:45 07/01/16 01:44 Ondansetron HCl (Zofran Inj) 4 mg Q6H PRN IV 06/01/16 01:45 07/01/16 01:44 Polyethylene (Miralax Powder Packet) 17 gm DAILY PRN PO 06/01/16 01:45 07/01/16 01:44 Miscellaneous (Iv Fluids Completed) 1 ea PRN PRN N/A 06/01/16 02:00 06/01/17 01:59 06/01/16 12:50 1 EA Ioversol (Optiray 320) 125 ml UD PRN IV 06/01/16 10:00 06/05/16 09:59 Polyethylene (Miralax Powder Packet) 17 gm DAILY PRN PO 06/01/16 17:00 07/01/16 16:59 Impression This is a 75-year-old male with repeat unresponsive episodes. Some appear to possibly be syncopal and could be secondary to vertebrobasilar insufficiency with a known high-grade stenosis of the right vertebral. Other spells of prolonged unresponsiveness have been concerning for possible psychogenic versus malingering behavior. Patient has had a previous epilepsy workup at an outside institution that was unremarkable. Of course cannot fully rule out that some of his spells are epileptogenic, although there has been low suspicion in the past. Plan I have ordered Keppra 500 mg twice a day to see if this will stop his unresponsive spells. At this time there is no high certainty or indication that he does have epilepsy. In terms of vertebral basal insufficiency possibly causing some syncopal events , the patient is already on maximal local therapy with anticoagulation and aspirin. Could consider vascular consult as an outpatient, but my suspicion is that he would not be amenable to any procedure. Follow-up in neurology clinic in 1-2 months or as needed. Thank you for allowing me to participate in this patient's care. If there is any questions or concerns, feel free to call/page me.
[2016-06-02] MEDS ORDERED: LEVETIRACETAM 500 MG TAB PO ONE (09:30)
[2016-06-02] MEDS ORDERED: LEVE500T PO (09:37)
--- NOTE | 2016-06-02 10:01 | Discharge Instructions ---
Discharge Instructions Admission Reason for Admission: TIA Discharge Discharge Diagnosis / Problem: Unresponsive episodes Discharge Goals Goal(s): Decrease discomfort, Increase independence Activity Recommendations Activity Limitations: resume your previous activity . Instructions / Follow-Up Instructions / Follow-Up Patient was admitted to the hospital for the unresponsive episodes. Head CT showed old lacunar infarct within the left basal ganglia, which is similar to the previous study done on June 2015. Chest X-ray was normal. MRI of the brain showed no significant changed from previous imaging. MRA of head and neck showed no significant change from previous imaging (June 2015). EEG was normal. Neurology was consulted and they thought it could be secondary to vertebrobasilar insufficiency with a known high-grade stenosis of the right vertebral. However since he is already on ASA and Xarelto and no other additional medication at this moment would be needed. Consider vascular consult as an outpatient, but it is likely that he would not be amenable to any procedure. Patient will be started on Keppra 500mg BID given it can be secondary to partial complex seizure. Patient was prescribed Keppra 500mg BID. Follow up with the Neurology clinic 1- 2 months or as needed. Vacular consult will be placed. Current Hospital Diet Patient's current hospital diet: AHA Diet (Heart Healthy) Discharge Diet Recommended Diet: AHA Diet (Heart Healthy) Pending Studies Studies pending at discharge: no Laboratory Results Hemoglobin A1c Test 06/01/16 00:07 Range/Units Estimated Average Glucose 111 mg/dl Hemoglobin A1c 5.5 4.5-5.6 % Lipid Panel Test 06/02/16 06:40 Range/Units Triglycerides Level 146 0-150 mg/dl Cholesterol Level 188 0-200 mg/dl HDL Cholesterol 40 mg/dl Cholesterol/HDL Ratio 4.7 LDL Cholesterol, Calculated 119 mg/dl Medical Emergencies . Who to Call and When: Medical Emergencies: If at any time you feel your situation is an emergency, please call 911 immediately. . Non-Emergent Contact Non-Emergency issues call your: Primary Care Provider . . "Provider Documentation" section prepared by Diana Rodrigues. VTE Core Measure Inpt VTE Proph given/why not?: Other Anticoagulation
[2016-06-02 10:32] VITALS: BP 134/96; PULSE 75; TEMP 36.5; O2SAT 98
--- NOTE | 2016-06-02 18:37 | Discharge Summary ---
Discharge Summary Date of Service Jun 02, 2016. (Diana Rodrigues MD) Discharge Summary Admission Date: Jun 01, 2016 at 01:42 Discharge Date: Jun 02, 2016 Principal Diagnosis: Unresponsive episodes Procedures: CT HEAD WITHOUT CONTRAST (CT) CLINICAL HISTORY: Change in mental status. Unresponsive patient. COMPARISON STUDY: 06/08/2015 TECHNIQUE: Axial CT of the brain is performed from the vertex to the skull base. IV contrast was not administered for this examination. CT DOSE: 614.27 mGy.cm FINDINGS: There is a left middle cranial fossa arachnoid cyst. No other masses are visualized. There is no CT evidence of acute cortical infarction. There is no midline shift. There is no acute hemorrhage. There are patchy white matter hypodensities likely on a small vessel basis. There is an old lacunar infarct within the left basal ganglia. There is no evidence of pathologic ventricular dilatation. There is no evidence of acute sinusitis IMPRESSION: No acute intracranial findings Electronically signed by: Aris Manrique M.D. 06/01/2016 6:29 AM Dictated Date/Time: 06/01/2016 6:28 AM Brain MRI WITHOUT CONTRAST HISTORY: Mental status change Stroke TECHNIQUE: Multiplanar multisequence MRI of the brain was performed without the use of contrast. COMPARISON STUDY: 06/09/2015 FINDINGS: No evidence for an acute ischemic insult. Moderate cerebellar as well as cerebral atrophy. Moderate chronic small vessel change. Left temporal fossa arachnoid cyst unchanged as compared to leads to prior exams. IMPRESSION: 1. No evidence for an acute intracranial ischemic process. 2. Atrophy. 3. Moderate chronic small vessel change. 4. Stable left temporal fossa arachnoid cyst Electronically signed by: Gerardo Rosales M.D. 06/01/2016 1:42 PM Dictated Date/Time: 06/01/2016 1:[address] ANGIOGRAPHY NECK COMBO CT DOSE: 1853.92 mGy.cm CLINICAL HISTORY: Transient ischemic attack. Vertebrobasilar insufficiency. TECHNIQUE: Unenhanced and arterial phase imaging of the neck was performed. Injection of 118 cc of Optiray 320 IV was uneventful. Sagittal and coronal reconstructions were viewed as well as maximal intensity projections on an independent 3-D workstation. COMPARISON STUDY: CTA of the neck June 09, 2015. FINDINGS: There is mild plaque within the bilateral common carotid and internal carotid arteries without significant stenosis of these vessels. There is no evidence for dissection within the major vessels of the neck. The left vertebral artery is diminutive and arises directly from the aortic arch. There is moderate to severe stenosis of the intracranial portion of the left vertebral artery. There is extensive plaque of the intracranial portion of the right vertebral artery with suspected severe stenosis within its distal aspect. This is similar to exam of June 09, 2015. No cervical lymphadenopathy is present. Multifocal subpleural groundglass opacities with bronchiectasis suggest interstitial lung disease. Visualized portions of the airway are patent. No cervical spine fractures are noted. The CTA of the head will be reported separately. IMPRESSION: 1. No significant change since CTA of June 09, 2015. 2. Diminutive left vertebral artery, on a congenital basis, with moderate multifocal stenoses of the distal left vertebral artery. 3. Severe stenosis of the distal right vertebral artery. Diminutive basilar artery. 4. No significant stenosis of the bilateral common carotid and internal carotid arteries. 5. Subpleural ground glass opacities with bronchiectasis within visualized portions of the lungs which favors interstitial lung disease. Electronically signed by: Jovanny Velasco M.D. 06/01/2016 2:18 PM Dictated Date/Time: 06/01/2016 2:04 PM The status of this report is Signed. Draft = Not yet reviewed or approved by Radiologist. Signed = Reviewed and approved by Radiologist. <AttendingPhy>Porfirio Shelby D.O.</AttendingPhy> <FamilyPhy>Bharat WEISS</ FamilyPhy> <PrimaryPhy>SCIBharat</PrimaryPhy> <UnitNumber>[id number]</ UnitNumber> <VisitNumber>[id number]</VisitNumber> <PatientName>AFRICA CHÁVEZ [id number]</PatientName> <DateOfBirth>1940</DateOfBirth> <Location>[facility]</ Location> <ServiceDate>05/31/16</ServiceDate> <MNE>ESINDI</MNE> <OrderingPhy> Abhishek Souza MD</OrderingPhy> <OrderingPhyMNE>f rep ord dr jackman</OrderingPhyMNE > <DictatingPhyMNE>f rep dict dr jackman</DictatingPhyMNE> <CCListMNE>f rep ct mne</ CCListMNE> <AdmittingPhyMNE>f pt admit dr jackman</AdmittingPhyMNE> <AttendingPhyMN CT ANGIOGRAPHY HEAD COMBO CT DOSE: CLINICAL HISTORY: Transient ischemic attack. Vertebrobasilar insufficiency. TECHNIQUE: Unenhanced images were obtained the brain. CT angiography of the head was then performed in a dynamic helical fashion during intravenous administration of 118 cc Optiray 320. MIP imaging was performed. COMPARISON STUDY: Noncontrast head CT dated June 01, 2016 FINDINGS: Noncontrast images reveal a left middle cranial fossa arachnoid cyst. There is a left basal ganglial lacunar infarct. There is no acute hemorrhage. CT angiographic images reveal a diminutive distal left vertebral artery. There is a high-grade stenosis of the distal right vertebral artery at the C1 level. The basilar artery is diminutive. There are atherosclerotic calcifications within the internal carotid arteries bilaterally. There is no evidence of hemodynamic significant stenosis. There are no lesion suspicious for aneurysm. There is no evidence of dural venous sinus thrombosis. IMPRESSION: 1. No evidence of aneurysm 2. No evidence of significant intracranial carotid stenosis 3. Diminutive distal left vertebral artery. High-grade stenosis of the distal right vertebral artery. Diminutive basilar artery. Electronically signed by: Aris Manrique M.D. 06/01/2016 2:08 PM Dictated Date/Time: 06/01/2016 2:03 PM The status of this report is Signed. Draft = Not yet reviewed or approved by Radiologist. Signed = Reviewed and approved by Radiologist. <AttendingPhy>Porfirio Shelby D.O.</AttendingPhy> <FamilyPhy>Bharat WEISS</ FamilyPhy> <PrimaryPhy>Bharat WEISS</PrimaryPhy> <UnitNumber>[id number]</ UnitNumber> <VisitNumber>[id number]</VisitNumber> <PatientName>AFRICA CHÁVEZ [id number]</PatientName> <DateOfBirth>1940</DateOfBirth> <Location>[facility]</ Location> <ServiceDate>05/31/16</ServiceDate> <MNE>ESINDI</MNE> <OrderingPhy> Abhishek Souza MD</OrderingPhy> <OrderingPhyMNE>f rep ord dr jackman</OrderingPhyMNE > <DictatingPhyMNE>f rep dict dr jackman</DictatingPhyMNE> <CCListMNE>f rep ct mne</ CCListMNE> <AdmittingPhyMNE>f pt admit dr jackman</AdmittingPhyMNE> <AttendingPhyMNE >f pt attend dr jackman</AttendingPhyMNE> <ConsultingPhyMNE>f pt consult dr jackman</ConsultingPhyMNE> <FamilyPhyMNE>f pt fam dr jackman</FamilyPhyMNE> <OtherPhyMNE>f pt other dr jackman</OtherPhyMNE> < PrimaryPhyMNE>f pt prim care dr jackman</PrimaryPhyMNE> <ReferringPhyMNE>f pt referring dr jackman</ReferringPhyMNE> (Diana Rodrigues MD) Medication Reconciliation New Medications: Levetiractam (Levetiracetam) 500 Mg Tab 500 MG PO BID for 30 Days, #60 TAB 1 Refill Continued Medications: Aspirin (Aspirin Low Dose) 81 Mg Tab 81 MG PO DAILY Chlorthalidone (Hygroton) 25 Mg Tab 25 MG PO BID, TAB Ciclesonide (Alvesco) 160 Mcg/Act Aer 1 PUFF INH BID Cyanocobalamin (Vitamin B12 100 Mcg) 100 Mcg Tab 100 MCG PO DAILY, TAB Ibuprofen (Ibuprofen) 600 Mg Tab 600 MG PO TID PRN for Pain Levothyroxine Sodium (Synthroid) 25 Mcg Tab 50 MCG PO DAILY, TAB Lisinopril (Prinivil) 20 Mg Tab 20 MG PO BID, TAB Pravastatin Sodium (Pravachol) 40 Mg Tab 60 MG PO HS, TAB Rivaroxaban (Xarelto) 20 Mg Tab 20 MG PO DAILY, TAB Discharge Exam Patient was seen at the bedside during discharge. He was tolerating food well and denied any complaints today. Review of Systems: Constitutional: No chills, No fever Respiratory: No cough, No dyspnea at rest, No dyspnea on exertion, No shortness of breath, No sputum Cardiovascular: No chest pain, No edema Abdomen: No constipation, No diarrhea, No nausea, No pain, No vomiting Musculoskeletal: No muscle pain Genitourinary - Male: No dysuria Neurologic: No numbness/tingling, No paralysis, No vertigo, No weakness Integumentary: No rash Physical Exam: General Appearance: WD/WN, no apparent distress, + obese Neck: supple, trachea midline Respiratory/Chest: chest non-tender, lungs clear, normal breath sounds, no respiratory distress Cardiovascular: no edema, + systolic murmur, + irregularly irregular Abdomen / GI: normal bowel sounds, non tender, soft Extremities: normal inspection, no pedal edema, non-tender Neurologic/Psychiatric: alert, normal mood/affect Skin: normal color, warm/dry (Diana Rodrigues MD) Hospital Course This is a 75 y/o male [place] with PMHx of multiple syncopal episodes, AFib, CVA, HTN, multiple hx of syncopal episodes, bradycardia, prosthetic aortic valve (2013), and RENATO presented to the hospital complaining of unresponsive episodes lasting for about 10-15minutes. Patient remained asymptomatic through out the hospital course. 1.Unresponsive episodes - Patient has hx of unresponsive episodes and was admitted on June 2015 and March 2015 for similar events. Patient has had a previous epilepsy workup at an outside institution that was unremarkable. - This episodes can be 2/2 partial complex seizure vs vertebrobasilar insufficiency vs arrhythmia vs malingering behavior. - Head CT (3/2): 1) There is a left middle cranial fossa arachnoid cyst. No other masses are visualized. There is no CT evidence of acute cortical infarction. There is no midline shift. 2) There is no acute hemorrhage. 3) There are patchy white matter hypodensities likely on a small vessel basis. 4) There is an old lacunar infarct within the left basal ganglia. 5) There is no evidence of pathologic ventricular dilatation. - EEG is normal - MRI of brain -1. No evidence for an acute intracranial ischemic process. 2. Atrophy. 3. Moderate chronic small vessel change. - Neck CTA - No significant change since CTA of June 09, 2015. - Head CTA: 1) No evidence of aneurysm 2) No evidence of significant intracranial carotid stenosis 3) Diminutive distal left vertebral artery. High-grade stenosis of the distal right vertebral artery. Diminutive basilar artery. - Continue with ASA and Xarelto on discharge - Neurology was consulted. She thought unresponsive episodes could be syncopal or secondary to vertebrobasilar insufficiency with a known high-grade stenosis of the right vertebral. Other spells of prolonged unresponsiveness have been concerning for possible psychogenic versus malingering behavior. Patient was started on Keppra 500mg BID on discharge. For vertebral basal insufficiency possibly causing some syncopal events, the patient is already on maximal local therapy with Xarelto and aspirin, no other medication needed at this moment. - Referral to vascular surgery Dr. Choudhary as outpatient - Follow up with the neurology clinic in 1-2months or as needed Total Time Spent: Greater than 30 minutes This includes examination of the patient, discharge planning, medication reconciliation, and communication with other providers. (Diana Rodrigues MD) Resident Physician Supervision Note: I was present with Dr. Rodrigues during the history and exam. I discussed the case with the resident and agree with the findings and plan as documented in the note. Any exceptions or clarifications are listed here: None Documented By: Porfirio Shelby (Porfirio Shelby.,D.O.) Discharge Instructions Please refer to the electronic Patient Visit Report (Discharge Instructions) for additional information. (Diana Rodrigues MD)
[2016-06-02] MEDS ORDERED: LEVETIRACETAM 500 MG TAB PO SCH (21:00)
== END 2016-06-02 12:28 ==
LOC: ENRESERVDT → ENRESERVTM → EDBD 23:42 → C.EDA 23:44 → C.MSICU 06-01 01:42 → C.2E 06-01 14:43
PROVIDERS: ADMIT Internal Medicine; ATTEND Family Medicine
DX: R41.82 Altered mental status, unspecified (principal); R55 Syncope and collapse; I48.91 Unspecified atrial fibrillation; I10 Essential (primary) hypertension; G47.33 Obstructive sleep apnea (adult) (pediatric); E03.9 Hypothyroidism, unspecified; I25.10 Atherosclerotic heart disease of native coronary artery without angina pectoris; Z86.73 Personal history of transient ischemic attack (TIA), and cerebral infarction without residual deficits; Z79.82 Long term (current) use of aspirin; Z79.01 Long term (current) use of anticoagulants; Z95.2 Presence of prosthetic heart valve

== ENCOUNTER 2016-07-09 11:54 | Emergency (ER) | payer OTHER ==
[~2016-07-09] VITALS: Ht 177.8 cm; Wt 104.1 kg
[~2016-07-09 11:54] MED LIST changes: -ASPEC81 PO; +ASPI1TAB48 PO; +HYG/25 PO; +LEVE500T PO; +LISI20TA3 PO
[2016-07-09 12:09] VITALS: TEMP 36.5; Ht 177.8 cm; Wt 104.1 kg
[2016-07-09] MEDS ORDERED: PRAV20TA2 PO (12:09)
[2016-07-09 13:18] LABS: ALT/SGPT 17 U/L (12-78); AST/SGOT 15 U/L (15-37); BLOOD UREA NITROGEN 21 mg/dl (7-18); BUN/CREATININE RATIO 20.8 (10-20); CALCIUM 9.3 mg/dl (8.5-10.1); CARBON DIOXIDE 29 mmol/L (21-32); CHLORIDE 105 mmol/L (98-107); GLUCOSE 95 mg/dl (70-99); MAGNESIUM 2.1 mg/dl (1.8-2.4); POTASSIUM 4.2 mmol/L (3.5-5.1); SODIUM 144 mmol/L (136-145)
[2016-07-09 13:22] LABS: BASO % 0.3 %; BASO ABS # 0.03 K/uL (0-0.2); COMPLETE YES; EOS % 1.8 %; HEMATOCRIT 41.5 % (42-52); IG% 0.3 %; LYMPH % 16.1 %; MEAN CELL VOLUME 88.1 fL (80-100); MEAN CORPUSCULAR HGB CONC 35.2 g/dl (32-36); MEAN PLATELET VOLUME 10.8 fL (7.4-10.4); NEUT % 73.5 %; PLATELET COUNT 163 K/uL (130-400); RED BLOOD COUNT 4.71 M/uL (4.7-6.1); WHITE BLOOD COUNT 10.57 K/uL (4.8-10.8)
--- NOTE | 2016-07-09 13:24 | DIAGNOSTIC IMAGING REPORT ---
CHEST ONE VIEW PORTABLE CLINICAL HISTORY: Near syncope. COMPARISON STUDY: Chest radiograph June 01, 2016. FINDINGS: There are median sternotomy wires and a prosthetic cardiac valve. Cardiomegaly is unchanged. There is no pneumothorax. Asymmetric interstitial thickening within the left lung is unchanged. No lobar consolidation is present. IMPRESSION: 1. No change in asymmetric left lung interstitial thickening. While nonspecific, this could reflect asymmetric interstitial lung disease. 2. No change in appearance of the chest. Electronically signed by: Jovanny Velasco M.D. 07/09/2016 1:22 PM Dictated Date/Time: 07/09/2016 1:20 PM
[2016-07-09 13:26] LABS: ALKALINE PHOSPHATASE 104 U/L (45-117); CKMB/CK RATIO 2.8 (0-3.0)
[2016-07-09 14:03] LABS: URINE APPEARANCE CLEAR (CLEAR); URINE BILIRUBIN NEG (NEG); URINE COLOR DK YELLOW; URINE NITRITE NEG (NEG); URINE SPECIFIC GRAVITY 1.024 (1.000-1.030); UROBILINOGEN NEG (NEG); ZZUR CULT IF INDIC CLEAN CATCH NO
[2016-07-09] MEDS ORDERED: HydrALAZINE HCL 20 MG/ML VIAL IV. STA (14:03)
[2016-07-09 14:06] LABS: MANUAL MICROSCOPIC REQUIRED? NO; REVIEW REQ? NO
[2016-07-09 14:55] VITALS: PULSE 95
[2016-07-09 15:51] VITALS: BP 181/99; O2SAT 98
--- NOTE | 2016-07-09 17:16 | EMERGENCY ROOM VISIT NOTE ---
History Report prepared by Kay: Michelle Renee Under the Supervision of: Dr. Jennifer Rendon M.D. First contact with patient: 12:37 Chief Complaint: SYNCOPE (NEAR SYNCOPE) Stated Complaint: SYNCOPE Nursing Triage Summary: in zoroastrian singing and felt funny went to sit down and missed chair. said he did not pass out. History of Present Illness The patient is a 75 year old male who presents to the Emergency Room with complaints of an episode of near syncope this morning. He was at zoroastrian standing when he began to feel like he could not stand anymore. He cannot describe exactly how he felt at the time or what happened. The nurses report that he missed the chair as he went to sit down. He denies blacking out. He denies being in any pain currently. He denies any fever or chest pain. He has been having trouble urinating for years. He reports that he has been eating and drinking normally. He is on blood thinners for A fib. Source of History: patient, nursing staff Onset: this morning Position: other (global) Quality: other (near syncope) Timing: other (episodic) Associated Symptoms: + urinary symptoms, No chest pain, No fevers Note: Pt denies having any pain. Review of Systems See HPI for pertinent positives & negatives. A total of 10 systems reviewed and were otherwise negative. Past Medical & Surgical Medical Problems: (1) Atrial fibrillation (2) Embolic stroke of left basal ganglia (3) HTN (hypertension) (4) Hypothyroidism (5) Pneumonia (6) Seizure-like activity (7) Seizures (8) Stenosis of right vertebral artery Surgical Problems: (1) Aortic valve replaced Family History Patient reports no known family medical history. Social History Smoking Status: Never Smoker Drug Use: none Marital Status: Housing Status: other Occupation Status: unemployed Current/Historical Medications Scheduled Aspirin (Aspirin Low Dose), 81 MG PO DAILY Chlorthalidone (Hygroton), 25 MG PO BID Ciclesonide (Alvesco), 1 PUFF INH BID Cyanocobalamin (Vitamin B12 100 Mcg), 100 MCG PO DAILY Levetiractam (Levetiracetam), 500 MG PO BID Levothyroxine Sodium (Synthroid), 50 MCG PO DAILY Lisinopril (Prinivil), 20 MG PO BID Pravastatin Sodium (Pravachol), 60 MG PO HS Rivaroxaban (Xarelto), 20 MG PO DAILY Allergies Coded Allergies: No Known Allergies (Unverified , 07/09/16) Physical Exam Vital Signs Date Time Temp Pulse Resp B/P Pulse Ox O2 Delivery O2 Flow Rate FiO2 07/09/16 15:51 18 181/99 98 Room Air 07/09/16 14:55 95 18 161/104 97 Room Air 07/09/16 13:32 65 18 170/107 97 Room Air 07/09/16 13:29 65 20 170/107 97 90 192/109 81 161/129 07/09/16 13:03 68 18 164/91 97 Room Air 07/09/16 12:57 65 07/09/16 12:09 36.5 69 18 199/114 97 Room Air Physical Exam Vital signs reviewed. Noted to be hypertensive. General: Well-appearing, in no significant distress. Poor dentition. HEENT: No scleral icterus, PERRLA, neck supple. Atraumatic. Cardiovascular: Rate controlled rate and irregular rhythm, no extra sounds. Pulmonary: Clear to auscultation bilaterally, normal work of breathing. Abdomen: Soft, nontender, nondistended, positive bowel sounds. Musculoskeletal: Atraumatic, no peripheral edema. Neurologic: Patient awake alert and oriented x 3, full strength in all 4 extremities. Cranial nerves 2 through 12 grossly intact. Skin: Warm, dry, no rash Medical Decision & Procedures ER Provider Diagnostic Interpretation: X-ray results as stated below per interpretation by me and the radiologist: CHEST ONE VIEW PORTABLE CLINICAL HISTORY: Near syncope. COMPARISON STUDY: Chest radiograph June 01, 2016. FINDINGS: There are median sternotomy wires and a prosthetic cardiac valve. Cardiomegaly is unchanged. There is no pneumothorax. Asymmetric interstitial thickening within the left lung is unchanged. No lobar consolidation is present. IMPRESSION: 1. No change in asymmetric left lung interstitial thickening. While nonspecific, this could reflect asymmetric interstitial lung disease. 2. No change in appearance of the chest. Electronically signed by: Jovanny Velasco M.D. 07/09/2016 1:22 PM Dictated Date/Time: 07/09/2016 1:20 PM Laboratory Results 07/09/16 12:15 Red Blood Count 4.71, Mean Corpuscular Volume 88.1, Mean Corpuscular Hemoglobin 31.0, Mean Corpuscular Hemoglobin Concent 35.2, Mean Platelet Volume 10.8, Neutrophils (%) (Auto) 73.5, Lymphocytes (%) (Auto) 16.1, Monocytes (%) (Auto) 8.0, Eosinophils (%) (Auto) 1.8, Basophils (%) (Auto) 0.3, Neutrophils # (Auto) 7.77, Lymphocytes # (Auto) 1.70, Monocytes # (Auto) 0.85, Eosinophils # (Auto) 0.19, Basophils # (Auto) 0.03 07/09/16 12:15 Test 07/09/16 12:15 07/09/16 13:45 White Blood Count 10.57 K/uL (4.8-10.8) Red Blood Count 4.71 M/uL (4.7-6.1) Hemoglobin 14.6 g/dL (14.0-18.0) Hematocrit 41.5 % (42-52) Mean Corpuscular Volume 88.1 fL (80-100) Mean Corpuscular Hemoglobin 31.0 pg (25-34) Mean Corpuscular Hemoglobin Concent 35.2 g/dl (32-36) Platelet Count 163 K/uL (130-400) Mean Platelet Volume 10.8 fL (7.4-10.4) Neutrophils (%) (Auto) 73.5 % Lymphocytes (%) (Auto) 16.1 % Monocytes (%) (Auto) 8.0 % Eosinophils (%) (Auto) 1.8 % Basophils (%) (Auto) 0.3 % Neutrophils # (Auto) 7.77 K/uL (1.4-6.5) Lymphocytes # (Auto) 1.70 K/uL (1.2-3.4) Monocytes # (Auto) 0.85 K/uL (0.11-0.59) Eosinophils # (Auto) 0.19 K/uL (0-0.5) Basophils # (Auto) 0.03 K/uL (0-0.2) RDW Standard Deviation 42.4 fL (36.4-46.3) RDW Coefficient of Variation 13.1 % (11.5-14.5) Immature Granulocyte % (Auto) 0.3 % Immature Granulocyte # (Auto) 0.03 K/uL (0.00-0.02) Activated Partial Thromboplast Time 26.1 SECONDS (21.0-31.0) Partial Thromboplastin Ratio 1.0 Anion Gap 10.0 mmol/L (3-11) Est Creatinine Clear Calc Drug Dose 78.3 ml/min Estimated GFR () 85.6 Estimated GFR (Non- 73.8 BUN/Creatinine Ratio 20.8 (10-20) Calcium Level 9.3 mg/dl (8.5-10.1) Magnesium Level 2.1 mg/dl (1.8-2.4) Total Bilirubin 0.4 mg/dl (0.2-1) Direct Bilirubin < 0.1 mg/dl (0-0.2) Aspartate Amino Transf (AST/SGOT) 15 U/L (15-37) Alanine Aminotransferase (ALT/SGPT) 17 U/L (12-78) Alkaline Phosphatase 104 U/L (45-117) Total Creatine Kinase 43 U/L (39-308) Creatine Kinase MB 1.2 ng/ml (0.5-3.6) Creatine Kinase MB Ratio 2.8 (0-3.0) Troponin I < 0.015 ng/ml (0-0.045) Total Protein 7.0 gm/dl (6.4-8.2) Albumin 3.7 gm/dl (3.4-5.0) Thyroid Stimulating Hormone (TSH) 2.530 uIu/ml (0.300-4.500) Urine Color DK YELLOW Urine Appearance CLEAR (CLEAR) Urine pH 5.0 (4.5-7.5) Urine Specific [place] 1.024 (1.000-1.030) Urine Protein NEG (NEG) Urine Glucose (UA) NEG (NEG) Urine Ketones NEG (NEG) Urine Occult Blood NEG (NEG) Urine Nitrite NEG (NEG) Urine Bilirubin NEG (NEG) Urine Urobilinogen NEG (NEG) Urine Leukocyte Esterase NEG (NEG) Laboratory results per my review. Medications Administered Medications (Trade) Dose Ordered Sig/Edwina Route Start Time Stop Time Status Last Admin Dose Admin Hydralazine HCl (HydrALAZINE INJ) 10 mg NOW STAT IV. 07/09/16 14:03 07/09/16 14:04 DC 07/09/16 14:10 10 MG Hydralazine HCl (Apresoline Tab) 25 mg NOW STAT PO 07/09/16 15:01 07/09/16 15:02 DC 07/09/16 15:10 25 MG ECG Indication: syncope Rate (beats per minute): 71 Rhythm: atrial fibrillation Findings: LAFB, no acute ischemic change, other (poor quality of baseline for interpretation, previous septal infarct, previous inferior infarct) ED Course 1254: Past medical records reviewed. The patient was evaluated in room C5. A complete history and physical examination was performed. 1403: Hydralazine HCl 10 mg IV. 1458: Upon reevaluation, the patient appeared to have improvement of his symptoms. I discussed findings with him. He verbalized agreement of the treatment plan. He was discharged. 1501: Hydralazine HCl 25 mg PO. Medical Decision Differential diagnosis: Etiologies such as vasovagal event, infection, hypoglycemia, electrolyte abnormalities, cardiac sources, intracerebral event, toxicologic, neurologic, as well as others were entertained. This patient was evaluated and appeared to be in no significant distress. IV access was obtained and laboratory work was drawn. Patient is found to be in a rate controlled atrial fibrillation. Physical examination is fairly unrevealing. Laboratory work reveals negative cardiac enzymes. Patient was given hydralazine 25 mg orally for marked hypertension. The patient seems to have no complaints at this time. He denies any injury from the episode. Patient was discharged back to the care home with recommendations to be given hydralazine 25 mg 3 times a day. He will follow-up with his physician for further management. Impression Primary Impression: Syncope Additional Impressions: Hypertension Atrial fibrillation Scribe Attestation The scribe's documentation has been prepared under my direction and personally reviewed by me in its entirety. I confirm that the note above accurately reflects all work, treatment, procedures, and medical decision making performed by me. Departure Information Dispostion Home / Self-Care Referrals Bharat WEISS (PCP) Forms HOME CARE DOCUMENTATION FORM, IMPORTANT VISIT INFORMATION Patient Instructions My [facility] Additional Instructions Diagnosis: Hypertension, syncope Hydralazine 25 mg 3 times daily for hypertension. Continue other medications as prescribed. Follow-up with the care home physician this week for blood pressure recheck and further cardiac/blood pressure management. Return to the ER for worsening of symptoms or any medical concerns. Problem Qualifiers Primary Impression: Syncope Syncope type: vasovagal syncope Qualified Codes: R55 - Syncope and collapse Additional Impressions: Hypertension Hypertension type: essential hypertension Qualified Codes: I10 - Essential ( primary) hypertension Atrial fibrillation Atrial fibrillation type: chronic Qualified Codes: I48.2 - Chronic atrial fibrillation
== END 2016-07-09 16:05 | disposition home or self-care (01) ==
LOC: EDBD 11:54 → C.EDC 11:55
DX: R55 Syncope and collapse (principal); I48.91 Unspecified atrial fibrillation; I10 Essential (primary) hypertension; E03.9 Hypothyroidism, unspecified; Z86.73 Personal history of transient ischemic attack (TIA), and cerebral infarction without residual deficits; Z79.01 Long term (current) use of anticoagulants; Z95.2 Presence of prosthetic heart valve